=== PATIENT | male | born 1940 | race Caucasian/White ===

== ENCOUNTER 2017-04-25 14:52 | Emergency (ER) | payer MEDICARE, BC ==
[~2017-04-25] VITALS: Ht 172.7 cm; Wt 95.4 kg
[~2017-04-25 14:52] MED LIST: ASPI-1265 PO; IBUP-24 PO; MAGN200T PO; ROSU10TA PO; SOTA80TA69 PO; ZET10T PO
[2017-04-25] MEDS ORDERED: BUPIVAcaine/PF 2.5 mg/ml (0.25%) 30ml vial IJ ONE (15:40)
[2017-04-25] MEDS ORDERED: TETanus/Pertussis (Acell)/Diphther VAC/PF (Tdap-Adult) 0.5ml syringe IM ONE (15:40)
[2017-04-25] MEDS ORDERED: AMOX-422 PO (16:25)
[2017-04-25 16:55] VITALS: BP 136/72
== END 2017-04-25 16:58 | disposition home or self-care (01) ==
LOC: ER 14:53
DX: S61.211A Laceration without foreign body of left index finger without damage to nail, initial encounter (principal); Z79.82 Long term (current) use of aspirin; W54.0XXA Bitten by dog, initial encounter; Y93.89 Activity, other specified; Y92.89 Other specified places as the place of occurrence of the external cause; Y99.8 Other external cause status
CPT/HCPCS: 12002; 90471; 90715; 99283; J3490

== ENCOUNTER 2017-07-26 06:49 | Emergency (ER) | payer MEDICARE, BC ==
[~2017-07-26] VITALS: Ht 172.7 cm; Wt 94.5 kg
[2017-07-26 06:59] VITALS: BP 102/75
[2017-07-26 07:25] LABS: CLARITY,URINE CLEAR (Clear); COLOR,URINE YELLOW (Yellow); GLUCOSE, URINE NEGATIVE (Neg); KETONES,URINE NEGATIVE (Neg); LEUKOCYTE ESTERASE ,URINE NEGATIVE (Neg); NITRITES, URINE NEGATIVE (Neg); OCCULT BLOOD,URINE NEGATIVE (Neg); PH,URINE 5.5 (4.8-8.0); PROTEIN,URINE NEGATIVE (Neg); UROBILINOGEN,URINE 0.2 E.U/dL (0.2-1.0)
[2017-07-26 07:25] LABS: BASOPHILS % (AUTO) 0.1 % (0-1); EOSINOPHILS # (AUTO) 0.2 X10'3 (0-0.9); EOSINOPHILS % (AUTO) 2.9 % (0-6); HEMOGLOBIN 14.9 g/dl (14.0-17.9); LYMPHOCYTES % (AUTO) 11.8 % (21-51); MEAN CORPUSCULAR HEMOGLOBIN 30.6 PG (27.0-31.0); MEAN CORPUSCULAR HGB CONC 33.8 % (33.0-36.5); MEAN CORPUSCULAR VOLUME 90.6 FL (78-98); MEAN PLATELET VOLUME 7.2 FL (7.4-10.4); MONOCYTES # (AUTO) 0.9 X10'3 (0-0.9); NEUTROPHILS # (AUTO) 6.3 X10'3 (1.8-7.7); NEUTROPHILS % (AUTO) 74.2 % (42-75); PLATELET COUNT 206 X10'3 (140-440); RED BLOOD COUNT 4.86 X10'6 (4.70-6.10); RED CELL DISTRIBUTION WIDTH 13.6 % (11.5-14.5); WHITE BLOOD COUNT 8.5 X10'3 (4.5-11.0)
[2017-07-26 07:30] LABS: UA COLLECTION TYPE CLN CATCH MIDSTREAM
[2017-07-26 07:33] LABS: INR 1.9 INR; PROTHROMBIN TIME 19.1 SECONDS (9.0-12.0)
[2017-07-26 07:39] LABS: ALANINE AMINOTRANSFERASE 47 U/L (12-78); ALBUMIN 3.8 G/DL (3.4-5.0); ALBUMIN/GLOBULIN RATIO 1.1 (1.1-1.5); ALKALINE PHOSPHATASE 59 IU/L (46-116); ANION GAP 8 (8-16); ASPARTATE AMINO TRANSFERASE 26 U/L (10-37); BILIRUBIN,TOTAL 1.1 MG/DL (0.1-1.0); BLOOD UREA NITROGEN 16 MG/DL (7-18); BUN/CREATININE RATIO 15.2 (5.4-32.0); CALCIUM 8.8 MG/DL (8.5-10.1); CHLORIDE 104 MMOL/L (99-107); CREATININE 1.05 MG/DL (0.60-1.10); GLUCOSE 116 MG/DL (70-104); LIPASE 150 U/L (73-393); POTASSIUM 4.2 MMOL/L (3.5-5.1); SODIUM 140 MMOL/L (135-145); TOTAL CARBON DIOXIDE 27.6 MMOL/L (24-32); TOTAL PROTEIN 7.4 G/DL (6.4-8.2); eGFR 69 ML/MIN
[2017-07-26] MEDS ORDERED: ciprofloxacin 250mg tablet PO ONE (08:55)
[2017-07-26] MEDS ORDERED: metroNIDAZOLE 500mg tablet PO ONE (08:55)
[2017-07-26] MEDS ORDERED: METR500T4 PO (08:59)
[2017-07-26] MEDS ORDERED: CIPR-230 PO (08:59)
[2017-07-26] MEDS ORDERED: HYDR-569 PO (09:05)
== END 2017-07-26 09:24 | disposition home or self-care (01) ==
LOC: ER 06:50
DX: K52.9 Noninfective gastroenteritis and colitis, unspecified (principal); Z95.0 Presence of cardiac pacemaker; Z79.82 Long term (current) use of aspirin; Z79.899 Other long term (current) drug therapy
CPT/HCPCS: 36415; 74176; 80053; 81003; 83690; 85025; 85610; 99285; J3490

== ENCOUNTER 2018-07-31 16:14 | Emergency (ER) | payer MEDICARE, BC ==
[~2018-07-31] VITALS: Ht 175.3 cm; Wt 85.5 kg
[~2018-07-31 16:14] MED LIST changes: +HYDR-4383 PO; -ROSU10TA PO; +ROSU10TA2 PO; -SOTA80TA69 PO; +SOTA80TA73 PO
[2018-07-31] MEDS ORDERED: LIDOcaine 1% 30ml preserv. free vial IJ STA (18:29)
[2018-07-31 19:22] VITALS: BP 120/80
== END 2018-07-31 19:24 | disposition home or self-care (01) ==
LOC: ER 16:14
DX: S61.217A Laceration without foreign body of left little finger without damage to nail, initial encounter (principal); Z90.79 Acquired absence of other genital organ(s); Z95.0 Presence of cardiac pacemaker; Z79.82 Long term (current) use of aspirin; Z79.899 Other long term (current) drug therapy; W23.0XXA Caught, crushed, jammed, or pinched between moving objects, initial encounter; Y93.89 Activity, other specified; Y92.89 Other specified places as the place of occurrence of the external cause; Y99.8 Other external cause status
CPT/HCPCS: 12001; 73140; 99283; J3490

== ENCOUNTER 2018-08-15 18:57 | Emergency (ER) | payer MEDICARE, BC ==
[~2018-08-15] VITALS: Ht 175.3 cm; Wt 85.3 kg
[2018-08-15] MEDS ORDERED: HYDROcodone/acetaminophen 10/325mg tab PO ONE (20:50)
--- NOTE | 2018-08-15 21:13 | NUR ---
pt returned from ct. ordering splinting of the leg. croze machine operator, Will, explaining the splinting procedure to Pt and . Pt with stable vs. Reports no change in the pain fromo receiving [place] [address] draper updated and requests to wait 30 min until attempting splinting.
[2018-08-15] MEDS ORDERED: HYDROmorphone 1 mg/ml syringe IM ONE (21:35)
--- NOTE | 2018-08-15 21:59 | NUR ---
Pt received dilaudid im 20 min ago. pt reports pain down to 6 out of 10 and thus far tolerating the splinting that is in progress. remains at bedside.
[2018-08-15] MEDS ORDERED: HYDR-4353 PO (22:00)
--- NOTE | 2018-08-15 22:28 | NUR ---
splinit now in place, pt tolerated well. current vss. pain now 5-[address] draper talking with and pt prior to dc.
[2018-08-15 22:29] VITALS: BP 133/71
== END 2018-08-15 22:31 | disposition home or self-care (01) ==
LOC: ER 19:54
DX: S82.831A Other fracture of upper and lower end of right fibula, initial encounter for closed fracture (principal); S00.81XA Abrasion of other part of head, initial encounter; I48.91 Unspecified atrial fibrillation; Z90.49 Acquired absence of other specified parts of digestive tract; Z95.0 Presence of cardiac pacemaker; Z79.82 Long term (current) use of aspirin; Z79.899 Other long term (current) drug therapy; W22.8XXA Striking against or struck by other objects, initial encounter; Y93.89 Activity, other specified; Y92.89 Other specified places as the place of occurrence of the external cause; Y99.8 Other external cause status
CPT/HCPCS: 29505; 73552; 73560; 73590; 73600; 73620; 73700; 96372; 99284; J1170

== ENCOUNTER 2023-11-29 08:54 | Emergency (ER) | payer MEDICARE, BC ==
[~2023-11-29] VITALS: Ht 167.6 cm; Wt 92.6 kg
[~2023-11-29 08:54] MED LIST changes: +HYDR-4353 PO
[2023-11-29 08:57] VITALS: TEMP 98.2
[2023-11-29] MEDS ORDERED: ONDA-245 PO (09:29)
[2023-11-29] MEDS ORDERED: DEC4T PO (09:29)
[2023-11-29] MEDS ORDERED: GUAI120015 PO (09:29)
[2023-11-29] MEDS ORDERED: BENZ-38 PO (09:29)
[2023-11-29 09:47] VITALS: BP 120/72; PULSE 68; RESP 16; O2SAT 95
== END 2023-11-29 09:53 | disposition home or self-care (01) ==
LOC: ER 08:54
DX: J22 Unspecified acute lower respiratory infection (principal); I48.91 Unspecified atrial fibrillation; Z79.899 Other long term (current) drug therapy; Z79.891 Long term (current) use of opiate analgesic; Z79.1 Long term (current) use of non-steroidal anti-inflammatories (NSAID); Z90.49 Acquired absence of other specified parts of digestive tract; Z95.0 Presence of cardiac pacemaker
CPT/HCPCS: 99283

== ENCOUNTER 2023-12-05 14:14 | Emergency (ER) | payer MEDICARE, BC ==
[~2023-12-05] VITALS: Ht 175.3 cm; Wt 91.8 kg
[~2023-12-05 14:14] MED LIST changes: +BENZ-38 PO; +GUAI120015 PO; +ONDA-245 PO
[2023-12-05 14:17] VITALS: TEMP 98.7
[2023-12-05] MEDS ORDERED: AZIT-103 PO (16:12)
[2023-12-05] MEDS ORDERED: ALBU18HF2 INH (16:12)
[2023-12-05] MEDS ORDERED: CEFD300C3 PO (16:13)
[2023-12-05 16:38] VITALS: BP 130/67; PULSE 78; RESP 17; O2SAT 95
== END 2023-12-05 16:40 | disposition home or self-care (01) ==
LOC: ER 14:14
DX: R05.3 Chronic cough (principal); J16.8 Pneumonia due to other specified infectious organisms; I48.91 Unspecified atrial fibrillation; Z79.82 Long term (current) use of aspirin; Z79.1 Long term (current) use of non-steroidal anti-inflammatories (NSAID); Z79.899 Other long term (current) drug therapy; Z90.49 Acquired absence of other specified parts of digestive tract; Z95.0 Presence of cardiac pacemaker
CPT/HCPCS: 71045; 99283

== ENCOUNTER 2024-10-27 15:22 | Emergency (ER) | payer MEDICARE, BC ==
[~2024-10-27] VITALS: Ht 175.3 cm; Wt 93.8 kg
[~2024-10-27 15:22] MED LIST changes: +ALBU18HF2 INH; -BENZ-38 PO
[2024-10-27 15:25] VITALS: BP 144/71; PULSE 74; RESP 16; O2SAT 99
[2024-10-27] MEDS: rabies immune globulin/PF 150 unit/ml inj IMVAC STA (17:49)
--- NOTE | 2024-10-27 18:35 | Physician Documentation ---
History of Present Illness ~ Chief Complaint: Bite-animal Stated Complaint: RABIES VAC REQUEST Time Seen by MD: 16:34 Primary Medical Doctor: Ji HPI Patient is an 84-year-old gentleman presents to the emergency department for evaluation of rabies vaccine series. The patient was bitten by a dog with a an unknown rabies vaccine status approximately 3-4 days ago. Your worse your contacted by department of Health today and asked to report to the emergency department to be evaluated for a rabies vaccine series. Tetanus within 5 years?: Yes Medication Reconciliation Allergies: Coded Allergies: No Known Allergies (Unverified , 12/05/23) Scheduled Aspirin (Aspirin), 81 MG PO DAILY, (Reported) Ezetimibe* (Zetia*), 10 MG PO DAILY, (Reported) Guaifenesin (Mucinex), 1 TAB PO Q12H Hydrocodone Bit/Acetaminophen ([place] 10-325 Tablet), 1 TAB PO Q6H Ibuprofen (Advil), 400-800 MG PO UP TO 3X DAILY, (Reported) Magnesium (Magnesium), 200 MG PO DAILY, (Reported) Rosuvastatin Calcium* (Crestor*), 40 MG PO DAILY, (Reported) Sotalol Hcl* (Betapace*), 40 MG PO BID, (Reported) Scheduled PRN Albuterol Sulfate (Ventolin Hfa), 2 PUFFS INH Q4HPRN PRN for wheezing Hydrocodone/Acetaminophen ([place] 5-325 Tablet), 1-2 TAB PO Q8HPRN PRN for pain Ondansetron 8mg ODT (Ondansetron Odt), 1 TAB PO TID PRN for nausea/vomiting Past Medical History Past Medical History: No Pertinent History, Atrial Fibrillation, Hernia Past Surgical History: appendectomy, pacemaker Alcohol Use: None Drug Use: none Lives with: Family Lives In: Home Occupation: retired Review of Systems ROS As stated above in the HPI, otherwise all systems are reviewed and negative. Physical Exam Vital Signs: Temperature: 97.9, Source: Oral, Heart Rate: 74, Respiratory Rate: 16, BP: 144/71, Pulse Oximetry: 99, Weight: 93.800 Oxygen Flow Rate: 0 Physical Exam VITALS: Reviewed and as above. GENERAL: Alert, no apparent distress. HEENT: Normocephalic, atraumatic, PERRL, EOMI, dry mucosa, no erythema RESPIRATORY: Lungs clear, normal breath sounds, no respiratory distress. CHEST: No accessory muscle use, no retractions CV: Regular rate, rhythm, no edema, no murmur, No: JVD GI: Soft, non-tender, bowels sounds present, no rebound, guarding, or rigidity BACK: No CVA tenderness, or swelling MUSCULOSKELETAL No deformities, no edema SKIN: Warm and dry, small laceration/bite to finger NEURO: Oriented x4, No motor or sensory deficit PSYCH: Normal mood and affect, no agitation Progress Results/Orders Results/Orders Completed Orders - JOVAN MAYORGA KEY HOLDER Rabies Vaccine (Pcec)/Pf (Rabavert Rabie (10/27/24 17:05) Rabies Immune Globulin/Pf Inj (Hyperrab (10/27/24 17:01) Medications Received in ER Medications (Trade) Dose Ordered Sig/Shyam Route PRN Reason Start Time Stop Time Status Last Admin Dose Admin (Rabavert Rabies Vaccine kit) 2.5 unit ONCE ONCE IMVAC 10/27/24 17:05 10/27/24 17:06 DC 10/27/24 17:35 2.5 UNIT (Hyperrab S-D immune globulin inj) 1,880 unit ONCE STAT IMVAC 10/27/24 17:01 10/27/24 17:03 DC 10/27/24 17:49 1,880 UNIT Vital Signs 10/27/24 15:25 Temp 97.9 Pulse 74 Resp 16 B/P (MAP) 144/71 Pulse Ox 99 O2 Flow Rate 0 Medical Decision Making Findings For rabies prophylaxis. He has been counseling provided. Patient provided education regarding series and need to return to the emergency department for additional injections on days three seven and 14. Differential Dx:Considerations: Include: Abrasion, Allergic reaction, Anaphylaxis, Cellulitis, Contusion, Fracture, Hematoma, Insect envenomation, Laceration, Neurovascular injury, Punture wound, Retained foreign body, Urticari a, Other Departure Disposition: 01 HOME / SELF CARE / HOMELESS Impression: Primary Impression: Dog bite Additional Impressions: Rabies exposure Human rabies immune globulin product dispensed Condition: Stable Discharge Instructions: Animal Bite, Adult Additional Instructions: Today you received the two initial doses of rabies prophylaxis. He will want to return on day three day seven and day 14 to the emergency department for your additional injections. Please follow up with your primary care provider. Please return to the emergency department if you have any worsening recurrent sy mptoms or any additional concerning symptoms that we discussed here today. Referrals: NO PRIMARY CARE PROVIDER (PCP) Education Educated: Patient Educated regarding: treatment, prognosis, need for follow up JOVAN MAYORGA Oct 27, 2024 18:35
[2024-10-27 19:29] VITALS: TEMP 97.9
== END 2024-10-27 19:30 | disposition home or self-care (01) ==
LOC: ER 15:22
DX: S61.251A Open bite of left index finger without damage to nail, initial encounter (principal); I48.91 Unspecified atrial fibrillation; Z23 Encounter for immunization; Z20.3 Contact with and (suspected) exposure to rabies; Z90.49 Acquired absence of other specified parts of digestive tract; Z95.0 Presence of cardiac pacemaker; Z79.82 Long term (current) use of aspirin; W54.0XXA Bitten by dog, initial encounter; Y93.89 Activity, other specified; Y92.89 Other specified places as the place of occurrence of the external cause; Y99.8 Other external cause status
CPT/HCPCS: 90375; 90675; 96372; 99284; G0008; 90376; 90471

== ENCOUNTER 2024-10-29 13:48 | Emergency (ER) | payer MEDICARE, BC ==
[~2024-10-29] VITALS: Ht 175.3 cm; Wt 93.3 kg
[2024-10-29 14:07] VITALS: BP 120/69; PULSE 70; RESP 16; TEMP 98; O2SAT 97
--- NOTE | 2024-10-29 14:20 | Physician Documentation ---
HPI ~ General Chief Complaint: Medication Request Stated Complaint: RABIES VAC Time Seen by MD: 14:16 Primary Medical Doctor: Ji History of Present Illness HPI Comments Present 84-year-old gentleman that presents to the emergency department for the 2nd set injections in his rabies series. It was initially seen three days ago today initially started after being bitten by a dog unknown vaccines data. Patient denies any complications secondary to the 1st set of injections. Medication Reconciliation Allergies: Coded Allergies: No Known Allergies (Unverified , 10/29/24) Scheduled Aspirin (Aspirin), 81 MG PO DAILY, (Reported) Ezetimibe* (Zetia*), 10 MG PO DAILY, (Reported) Guaifenesin (Mucinex), 1 TAB PO Q12H Hydrocodone Bit/Acetaminophen ([place] 10-325 Tablet), 1 TAB PO Q6H Ibuprofen (Advil), 400-800 MG PO UP TO 3X DAILY, (Reported) Magnesium (Magnesium), 200 MG PO DAILY, (Reported) Rosuvastatin Calcium* (Crestor*), 40 MG PO DAILY, (Reported) Sotalol Hcl* (Betapace*), 40 MG PO BID, (Reported) Scheduled PRN Albuterol Sulfate (Ventolin Hfa), 2 PUFFS INH Q4HPRN PRN for wheezing Hydrocodone/Acetaminophen ([place] 5-325 Tablet), 1-2 TAB PO Q8HPRN PRN for pain Ondansetron 8mg ODT (Ondansetron Odt), 1 TAB PO TID PRN for nausea/vomiting Past Medical History Past Medical History: No Pertinent History, Atrial Fibrillation, Hernia Past Surgical History: appendectomy, pacemaker Alcohol Use: None Drug Use: none Lives with: Family Lives In: Home Occupation: retired Review of Systems ROS As stated above in the HPI, otherwise all systems are reviewed and negative. Physical Exam Physical Exam Vital Signs: Temperature: 98.0, Heart Rate: 70, Respiratory Rate: 16, BP: 120/69, Pulse Oximetry: 97, Weight: 93.350 Oxygen Flow Rate: 0 Physical Exam VITALS: Reviewed and as above. GENERAL: Alert, no apparent distress. HEENT: Normocephalic, atraumatic, PERRL, EOMI, dry mucosa, no erythema RESPIRATORY: Lungs clear, normal breath sounds, no respiratory distress. CHEST: No accessory muscle use, no retractions CV: Regular rate, rhythm, no edema, no murmur, No: JVD GI: Soft, non-tender, bowels sounds present, no rebound, guarding, or rigidity BACK: No CVA tenderness, or swelling MUSCULOSKELETAL No deformities, no edema SKIN: Warm and dry, no rash NEURO: Oriented x4, No motor or sensory deficit PSYCH: Normal mood and affect, no agitation Progress Results/Orders Results/Orders Completed Orders - SHANNON MAYORGA Rabies Vaccine (Pcec)/Pf (Rabavert Rabie (10/29/24 14:15) Vital Signs 10/29/24 14:07 Temp 98.0 Pulse 70 Resp 16 B/P (MAP) 120/69 Pulse Ox 97 O2 Flow Rate 0 Medical Decision Making Findings Counter for medication administration. Complications secondary to the 1st set of rabies prophylaxis series. Patient has been provided with strict return precautions. Patient will return on day seven for 3rd set of injections in the prophylactic series. Follow up with his primary care provider. Differential Dx:Considerations: Include: Adverse circumstances, Economic, Psychosocial, Medical services unavail., Medication refill, Medication non-compliance, Other Departure Disposition: HOME / SELF CARE / HOMELESS Impression: Primary Impression: General medical exam Additional Impression: Rabies exposure Condition: Stable Additional Instructions: Counter for medication administration. Complications secondary to the 1st set of rabies prophylaxis series. Patient has been provided with strict return precautions. Patient will return on day seven for 3rd set of injections in the prophylactic series. Follow up with his primary care provider. Referrals: NO PRIMARY CARE PROVIDER (PCP) Education Educated: Patient Educated regarding: treatment, need for follow up Signature Scribe Signature: A Attestation: Scribed for Shannon Mayorga by JU Kilpatrick . 10/31/24 17:38 SHANNON MAYORGA Oct 29, 2024 14:20
== END 2024-10-29 14:43 | disposition home or self-care (01) ==
LOC: ER 13:48
DX: T14.8XXD Other injury of unspecified body region, subsequent encounter (principal); Z23 Encounter for immunization; Z90.49 Acquired absence of other specified parts of digestive tract; Z95.0 Presence of cardiac pacemaker; W54.0XXD Bitten by dog, subsequent encounter
CPT/HCPCS: 90675; 99281; G0008; 90471

== ENCOUNTER 2024-11-02 10:53 | Emergency (ER) | payer MEDICARE, BC ==
[~2024-11-02] VITALS: Ht 172.7 cm; Wt 92.5 kg
[2024-11-02 11:00] VITALS: BP 121/63; PULSE 72; RESP 17; O2SAT 97
--- NOTE | 2024-11-02 11:13 | Physician Documentation ---
HPI ~ General Chief Complaint: Medication Request Stated Complaint: RABIES VACCINE Time Seen by MD: 11:10 Primary Medical Doctor: Ji History of Present Illness HPI Comments Year old male presents to the ED for his 3rd rabies vaccine secondary to a dog bite on his left index finger. denies any Symptoms Medication Reconciliation Allergies: Coded Allergies: No Known Allergies (Unverified , 11/02/24) Scheduled Aspirin (Aspirin), 81 MG PO DAILY, (Reported) Ezetimibe* (Zetia*), 10 MG PO DAILY, (Reported) Guaifenesin (Mucinex), 1 TAB PO Q12H Hydrocodone Bit/Acetaminophen ([place] 10-325 Tablet), 1 TAB PO Q6H Ibuprofen (Advil), 400-800 MG PO UP TO 3X DAILY, (Reported) Magnesium (Magnesium), 200 MG PO DAILY, (Reported) Rosuvastatin Calcium* (Crestor*), 40 MG PO DAILY, (Reported) Sotalol Hcl* (Betapace*), 40 MG PO BID, (Reported) Scheduled PRN Albuterol Sulfate (Ventolin Hfa), 2 PUFFS INH Q4HPRN PRN for wheezing Hydrocodone/Acetaminophen ([place] 5-325 Tablet), 1-2 TAB PO Q8HPRN PRN for pain Ondansetron 8mg ODT (Ondansetron Odt), 1 TAB PO TID PRN for nausea/vomiting Past Medical History Past Medical History: No Pertinent History, Atrial Fibrillation, Hernia Past Surgical History: appendectomy, pacemaker Alcohol Use: None Drug Use: none Lives with: Family Lives In: Home Occupation: retired Review of Systems All Other Systems at this time: Reviewed and Negative ROS As stated above in the HPI, otherwise all systems are reviewed and negative. Physical Exam Physical Exam Vital Signs: Temperature: 97.7, Source: Oral, Heart Rate: 72, Respiratory Rate: 17, BP: 121/63, Pulse Oximetry: 97, Weight: 92.500 Physical Exam General: Alert, no apparent distress. Extremities: Normal range of motion, no deformity. Skin: Normal color, warm and dry. No edema, no ecchymosis. Progress Results/Orders Results/Orders Completed Orders - DARRION MEZA NP Rabies Vaccine (Pcec)/Pf (Rabavert Rabie (11/02/24 11:10) Medications Received in ER Medications (Trade) Dose Ordered Sig/Shyam Route PRN Reason Start Time Stop Time Status Last Admin Dose Admin (Rabavert Rabies Vaccine kit) 2.5 unit ONCE ONCE IMVAC 11/02/24 11:10 11/02/24 11:12 DC 11/02/24 11:26 2.5 UNIT Vital Signs 11/02/24 11/02/24 11:00 11:42 Temp 97.7 97.7 Pulse 72 Resp 17 B/P (MAP) 121/63 Pulse Ox 97 Medical Decision Making Findings vaccine administered without issue patient will follow up accordingly Differential Dx:Considerations: Include: Adverse circumstances, Economic, Psychosocial, Medical services unavail., Medication refill, Medication non-compliance, Other Departure Disposition: 01 HOME / SELF CARE / HOMELESS Impression: Primary Impression: Human rabies immune globulin product dispensed Condition: Stable Referrals: NO PRIMARY CARE PROVIDER (PCP) Signature Scribe Signature: Attestation: Scribed for Darrion Meza Forensic Investigator by Darrion Reynolds NP . 11/02/24 18:25 DARRION MEZA NP Nov 02, 2024 11:12
[2024-11-02 11:42] VITALS: TEMP 97.7
== END 2024-11-02 11:44 | disposition home or self-care (01) ==
LOC: ER 10:54
DX: S61.251D Open bite of left index finger without damage to nail, subsequent encounter (principal); Z90.49 Acquired absence of other specified parts of digestive tract; Z95.0 Presence of cardiac pacemaker; Z79.82 Long term (current) use of aspirin; Z79.899 Other long term (current) drug therapy; W54.0XXD Bitten by dog, subsequent encounter
CPT/HCPCS: 90675; 99281; G0008; 90471

== ENCOUNTER 2024-11-09 09:45 | Emergency (ER) | payer MEDICARE, BC ==
[~2024-11-09] VITALS: Ht 177.8 cm; Wt 85.0 kg
[2024-11-09 09:50] VITALS: BP 147/82; PULSE 65; RESP 18; TEMP 98.5; O2SAT 95
--- NOTE | 2024-11-09 13:19 | Physician Documentation ---
HPI ~ General Chief Complaint: Medication Request Stated Complaint: MED REQ Time Seen by MD: 10:14 Primary Medical Doctor: Ji History of Present Illness HPI Comments Patient is seen today for his 4th series of rabies vaccination. Patient states he got bit on the finger by a cat few weeks ago. Patient denies any fevers or chills and is asymptomatic he denies any chest pain or shortness of breath or abdominal pain or nausea, vomiting, diarrhea or cough. Medication Reconciliation Allergies: Coded Allergies: No Known Allergies (Unverified , 11/02/24) Scheduled Aspirin (Aspirin), 81 MG PO DAILY, (Reported) Ezetimibe* (Zetia*), 10 MG PO DAILY, (Reported) Guaifenesin (Mucinex), 1 TAB PO Q12H Hydrocodone Bit/Acetaminophen ([place] 10-325 Tablet), 1 TAB PO Q6H Ibuprofen (Advil), 400-800 MG PO UP TO 3X DAILY, (Reported) Magnesium (Magnesium), 200 MG PO DAILY, (Reported) Rosuvastatin Calcium* (Crestor*), 40 MG PO DAILY, (Reported) Sotalol Hcl* (Betapace*), 40 MG PO BID, (Reported) Scheduled PRN Albuterol Sulfate (Ventolin Hfa), 2 PUFFS INH Q4HPRN PRN for wheezing Hydrocodone/Acetaminophen ([place] 5-325 Tablet), 1-2 TAB PO Q8HPRN PRN for pain Ondansetron 8mg ODT (Ondansetron Odt), 1 TAB PO TID PRN for nausea/vomiting Past Medical History Past Medical History: No Pertinent History, Atrial Fibrillation, Hernia Past Surgical History: appendectomy, pacemaker Alcohol Use: None Drug Use: none Lives with: Family Lives In: Home Occupation: retired Review of Systems Constitutional: Denies: chills, fever, weakness Eyes: Denies: pain, blurred vision ENT: Denies: ear pain, nose pain, throat pain, mouth pain Respiratory: Denies: cough, shortness of breath Cardiovascular: Denies: chest pain, palpitations Gastrointestinal: Denies: abdominal pain, nausea, vomiting Genitourinary: Denies: burning, dysuria Male Genitalia: Denies: penile discharge, testicular pain Neurological: Denies: headache, dizziness Musculoskeletal: Denies: pain, swelling Integumentary: Denies: rash, lesions Allergic/Immunologic: Denies: hives, itching Hematologic/Lymphatic: Denies: no symptoms reported Psychiatric: Denies: depression, anxiety Physical Exam Physical Exam Vital Signs: Temperature: 98.5, Source: Temporal, Heart Rate: 65, Respiratory Rate: 18, BP: 147/82, Pulse Oximetry: 95, Weight: 85.000 Oxygen Flow Rate: 0 Physical Exam General: Awake and Alert, no acute distress. HEENT: Conjunctiva pink, Sclera clear, Mucus Membranes moist. Neck: Supple without masses and tenderness. Resp: Unlabored. Lungs clear to auscultation bilaterally. Heart: Regular Rate and rhythm, normal S1 and S2 without murmur, rub or gallop. Musculoskeletal: Patient on exam has some scarring of the left hand and fingers but no open wound at this time. Range of motion is full, patient is neurovascularly intact distally. Motor function and strength intact distally. Abdomen: Soft and non tender no organomegaly Extremities: No cyanosis,clubbing or edema. Skin: Warm and Dry. Progress Results/Orders Results/Orders Completed Orders - CHIP DOYLE PAC Rabies Vaccine (Pcec)/Pf (Rabavert Rabie (11/09/24 11:35) Medications Received in ER Medications (Trade) Dose Ordered Sig/Shyam Route PRN Reason Start Time Stop Time Status Last Admin Dose Admin (Rabavert Rabies Vaccine kit) 2.5 unit ONCE ONCE IMVAC 11/09/24 11:35 11/09/24 11:36 DC 11/09/24 11:55 2.5 UNIT Vital Signs 11/09/24 09:50 Temp 98.5 Pulse 65 Resp 18 B/P (MAP) 147/82 Pulse Ox 95 O2 Flow Rate 0 Medical Decision Making Findings Patient is seen today for his 4th series of rabies vaccination. Patient states he got bit on the finger by a cat few weeks ago. Patient denies any fevers or chills and is asymptomatic he denies any chest pain or shortness of breath or abdominal pain or nausea, vomiting, diarrhea or cough. Patient was given 4th rabies vaccination today. Patient will follow up with primary care in 7-14 days if no better as needed sooner. Return to ED with any worsening, concerning or changing symptoms. Departure Disposition: HOME / SELF CARE / HOMELESS Impression: Primary Impression: Rabies exposure Condition: Improved Additional Instructions: Patient was given 4th rabies vaccination today. Patient will follow up with primary care in 7-14 days if no better as needed sooner. Return to ED with any worsening, concerning or changing symptoms. Referrals: NO PRIMARY CARE PROVIDER (PCP) Signature Scribe Signature: No scribe Attestation: No scribe CHIP DOYLE PAC Nov 09, 2024 13:19
== END 2024-11-09 16:58 | disposition home or self-care (01) ==
LOC: ER 09:46
DX: Z20.3 Contact with and (suspected) exposure to rabies (principal); Z23 Encounter for immunization; Z79.82 Long term (current) use of aspirin; Z90.49 Acquired absence of other specified parts of digestive tract; Z95.0 Presence of cardiac pacemaker
CPT/HCPCS: 90675; 99281; G0008; 90471